=== PATIENT | male | born 1960 | race Caucasian/White ===

== ENCOUNTER 2019-03-24 23:27 | Emergency (ER) | payer SELFPAY | END 2019-03-25 | disposition left against medical advice (07) | LOC: ER 23:27 | DX: Z53.21 Procedure and treatment not carried out due to patient leaving prior to being seen by health care provider (principal) ==

== ENCOUNTER 2019-07-05 22:34 | Emergency (ER) | payer MEDICAID ==
[~2019-07-05] VITALS: Ht 175.3 cm; Wt 73.0 kg
[2019-07-06 00:16] LABS: *AMPHETAMINES SCREEN URINE PRESUMTIVE POSITIVE (NEGATIVE)
[2019-07-06 00:17] LABS: *BARBITURATES SCREEN URINE NEGATIVE (NEGATIVE); *BENZODIAZEPINES SCREEN URINE NEGATIVE (NEGATIVE); *COCAINE SCREEN URINE NEGATIVE (NEGATIVE)
[2019-07-06 00:18] LABS: CANNABINOID URINE SCREEN NEGATIVE (NEGATIVE); METHADONE URINE SCREEN NEGATIVE (NEGATIVE); OPIATES URINE SCREEN NEGATIVE (NEGATIVE); PHENCYCLIDINE URINE SCREEN NEGATIVE (NEGATIVE)
[2019-07-06 00:20] LABS: BASOPHILS % 1.1 % (0.0-2.0); EOSINOPHILS % 2.8 % (0.0-5.0); HEMOGLOBIN. 14.4 g/dL (14.0-18.0); LYMPHOCYTES % 12.8 % (20.0-50.0); MEAN CORPUSCULAR HEMOGLOBIN 31.9 pg (28.0-32.0); MEAN CORPUSCULAR VOLUME 90.6 fL (80.0-94.0); MEAN PLATELET VOLUME 8.7 fl (7.4-10.4); MONOCYTES % 8.5 % (2.0-8.0); NEUTROPHILS % 74.8 % (40.0-76.0); PLATELET 278 x1000/uL (130-400); RED BLOOD CELL COUNT 4.52 mill/uL (4.7-6.1); RED CELL DISTRIBUTION WIDTH 13.1 % (11.6-14.6)
[2019-07-06 01:03] LABS: CHLORIDE 104 mEq/L (98-107)
[2019-07-06 01:12] LABS: ETHANOL BLOOD < 10 mg/dL
[2019-07-06 02:30] VITALS: BP 124/74
[2019-07-06] MEDS ORDERED: IOHEXOL-300 100 ML BOTTLE ONE (02:46)
== END 2019-07-06 04:43 | disposition home or self-care (01) ==
LOC: ER 22:34
DX: K11.20 Sialoadenitis, unspecified (principal); F91.1 Conduct disorder, childhood-onset type
CPT/HCPCS: 36415; 70491; 80053; 80305; 80307; 80320; 80329; 85025; 87070; 87430; 99284; Q9967; G0480